=== PATIENT | female | born 1960 | race Caucasian/White ===

== ENCOUNTER 2022-01-04 13:04 | Outpatient (CLI) | payer OTHER, SELFPAY ==
--- NOTE | 2022-01-04 13:20 | CRLHL7_ITS ---
For Patients: As a result of the Century Cures Act, medical imaging exams and procedure reports are released immediately into your electronic medical record. You may view this report before your referring provider. If you have questions, please contact your health care provider. BILATERAL SCREENING MAMMOGRAM WITH COMPUTER-AIDED DETECTION AND TOMOSYNTHESIS TECHNIQUE: CC and MLO views were obtained. These mammographic images have been obtained using full-field digital technique. These mammographic images were interpreted with the benefit of computer-aided detection. Breast Tomosynthesis was used in this interpretation. COMPARISON FILM: 11/09/20, 12/10/18, 12/18/17. FINDINGS: There are scattered areas of fibroglandular density IMPRESSION: There is no radiographic evidence for malignancy. ASSESSMENT: BI-RADS Category 1: Negative RECOMMENDATION: Routine screening mammogram in 1 year. A lay language report of this examination will be provided to the patient. Addison Weinberg M.D. Diagnostic Radiologist [email or web address] Transcribed: 4:10 pm DW/Dictated by: Addison Weinberg MD @ 01/07/2022 8:23:00 AM (Electronically Signed)
== END 2022-01-04 13:05 | disposition home or self-care (01) ==
LOC: MAMMO 13:05
PROVIDERS: PCP Family Medicine; Visit Provider Family Medicine
DX: Z12.31 Encounter for screening mammogram for malignant neoplasm of breast (principal)
CPT/HCPCS: 77063; 77067

== ENCOUNTER 2022-01-17 11:30 | Outpatient (RCR) | payer OTHER, SELFPAY | END 2022-12-18 11:24 | disposition home or self-care (01) | PROVIDERS: PCP Family Medicine; Visit Provider Family Medicine | DX: M25.571 Pain in right ankle and joints of right foot (principal); Z51.89 Encounter for other specified aftercare | CPT/HCPCS: 97110; 97161 ==

== ENCOUNTER 2022-03-05 10:27 | Outpatient (CLI) | payer OTHER, SELFPAY ==
[2022-03-05 13:16] LABS: TSH With Reflex to FT4* 0.425 uIU/mL (0.270-4.200)
== END 2022-03-05 10:28 | disposition home or self-care (01) ==
LOC: NFLDREF 10:33
PROVIDERS: PCP Family Medicine; Visit Provider Family Medicine
DX: E03.9 Hypothyroidism, unspecified (principal)
CPT/HCPCS: 84443

== ENCOUNTER 2022-11-27 14:44 | Outpatient (CLI) | payer OTHER, SELFPAY ==
--- NOTE | 2022-11-27 15:00 | CRLHL7_ITS ---
For Patients: As a result of the Century Cures Act, medical imaging exams and procedure reports are released immediately into your electronic medical record. You may view this report before your referring provider. If you have questions, please contact your health care provider. DXA BONE MINERAL DENSITY STUDY Reason for exam: Osteopenia. Current height (in): 68.5. Weight (lb): 167. Menopause age: 52. Ethnicity: White. 1. Have you had a previous hip or vertebral fracture? No. 2. Have you had any fractures during your adult life which did not result from significant trauma (e.g., auto accident)? No. 3. Did either of your parents have a hip fracture? No. 4. Do you smoke? No. 5. Have you ever taken Glucocorticoids? No. 6. Do you have rheumatoid arthritis? No. 7. Do you have secondary osteoporosis? No. 8. Do you drink 3 or more alcoholic drinks per day? No. 9. Are you being treated for osteoporosis? No. 10. Have you ever taken any of the following medications: Actonel, Evista, Fosamax, Miacalcin, Reclast, Boniva, Forteo, HRT (i.e., estrogen/hormone therapy), Protelos, Prolia, Vitamin D, Calcium, other ??? please specify. ANSWER: Yes, Evista, vitamin D, Boniva, HRT, and calcium. 11. Do you have any of the following medical conditions: Anorexia or bulimia, asthma or emphysema, end stage renal disease, hyperparathyroidism, any seizure disorders, cancer, inflammatory bowel diseases, hysterectomy, other ??? please specify. ANSWER: Yes, anxiety and hypothyroidism. 12. What was your maximum height (inches)? 68.5. 13. Do you perform weight bearing exercise regularly? No. 14. Do you regularly consume dairy products? Yes. 15. Do you drink caffeinated beverages? Yes. If female: 16. At what age did your period start? 15. 17. Are you premenopausal? No. 18. How many full-term pregnancies have you had? 0. 19. Have you ever missed your period for more than 6 months in a row (not including or menopause)? No. TECHNIQUE: Bone mineral density study was performed using the [employer]. FINDINGS: The results of the study expressed as bone mineral density (BMD) are as follows: Lumbar spine L1 to L4: BMD: 0.834 g/cm2. T-score: -1.9. Z-score: -0.5 Neck Left: BMD: 0.752 g/cm2. T-score: -0.9. Z-score: 0.4 Right: BMD: 0.710 g/cm2. T-score: -1.3. Z-score: 0.0 Total Left: BMD: 0.916 g/cm2. T-score: -0.2. Z-score: 0.7 Right: BMD: 0.778 g/cm2. T-score: -1.3. Z-score: -0.4 IMPRESSION: Osteopenia. *Comparison exams done prior to 11/2019 were performed on different unit, [place]. COMPARISON: Compared with scan of 11/09/2020, the bone mineral density has decreased by 6.1 percent at the spine and increased by 3.3 percent at the hip. Compared with scan of 12/10/2018, the bone mineral density has increased by 3.0 percent at the spine and increased by 3.2 percent at the hip. FRAX 10-year Fracture Risk Major Osteoporotic Fracture: 7.5% Hip Fracture: 0.5% Reported Risk Factors: [place] () Neck BMD=0.710, BMI= 25.0 Addison Weinberg M.D. Diagnostic Radiologist [email or web address] DENISE/marge bird/Dictated by: Addison Weinberg MD @ 11/27/2022 3:34:00 PM (Electronically Signed)
== END 2022-11-27 14:45 | disposition home or self-care (01) ==
LOC: RAD 14:45
PROVIDERS: PCP Family Medicine; Visit Provider Family Medicine
DX: M85.80 Other specified disorders of bone density and structure, unspecified site (principal)
CPT/HCPCS: 77080

== ENCOUNTER 2023-01-22 07:31 | Outpatient (CLI) | payer OTHER, SELFPAY | END 2023-01-22 07:32 | disposition home or self-care (01) | LOC: NFLDREF 01-25 07:57 | PROVIDERS: PCP Family Medicine; Referring Provider Family Medicine; Visit Provider Family Medicine | DX: Z00.00 Encounter for general adult medical examination without abnormal findings (principal); E03.9 Hypothyroidism, unspecified; D64.9 Anemia, unspecified; M85.80 Other specified disorders of bone density and structure, unspecified site; R53.83 Other fatigue; Z13.6 Encounter for screening for cardiovascular disorders | CPT/HCPCS: 80048; 80061; 82306; 82728; 83540; 84443 ==

== ENCOUNTER 2023-01-31 12:53 | Outpatient (CLI) | payer OTHER, SELFPAY ==
--- NOTE | 2023-01-31 13:00 | CRLHL7_ITS ---
For Patients: As a result of the Century Cures Act, medical imaging exams and procedure reports are released immediately into your electronic medical record. You may view this report before your referring provider. If you have questions, please contact your health care provider. BILATERAL SCREENING MAMMOGRAM WITH COMPUTER-AIDED DETECTION AND TOMOSYNTHESIS TECHNIQUE: CC and MLO views were obtained. These mammographic images have been obtained using full-field digital technique. These mammographic images were interpreted with the benefit of computer-aided detection. Breast Tomosynthesis was used in this interpretation. COMPARISON FILM: 01/04/22, 11/09/20, 12/10/18. FINDINGS: There are scattered areas of fibroglandular density IMPRESSION: There is no radiographic evidence for malignancy. ASSESSMENT: BI-RADS Category 1: Negative RECOMMENDATION: Routine screening mammogram in 1 year. A lay language report of this examination will be provided to the patient. Addison Weinberg M.D. Diagnostic Radiologist [email or web address] SHABNAM/Dictated by: Addison Weinberg MD @ 02/04/2023 8:18:00 AM (Electronically Signed)
== END 2023-01-31 12:54 | disposition home or self-care (01) ==
LOC: MAMMO 12:54
PROVIDERS: PCP Family Medicine; Visit Provider Family Medicine
DX: Z12.31 Encounter for screening mammogram for malignant neoplasm of breast (principal)
CPT/HCPCS: 77063; 77067

== ENCOUNTER 2023-02-11 13:28 | Outpatient (CLI) | payer OTHER, SELFPAY ==
--- NOTE | 2023-02-11 13:45 | MR_ITS ---
[address] [address] Phone:?[phone] Fax:?[phone] Referring Physician Information: Gavin Vergara M.D. [id number] [facility] [address] Phone:?[phone] Fax:?[phone] Patient:Mima Mcdaniel D.O.B:?1960 Sex:?Female Phone:? [facility] MRN:?[id number] Exam Date:?02/11/2023 EXAM: MRI EXAMINATION OF THE LEFT KNEE CLINICAL INFORMATION: Left knee pain. Difficulty weightbearing. No history of surgery to this area. TECHNICAL INFORMATION: Coronal PD and STIR. Axial PD and T2 fat saturation. Sagittal PD and PD fat saturation images acquired. No prior studies for comparison. INTERPRETATION: Bones: There is a 3.2 cm geographic bone lesion identified within the proximal tibia extending within 4 mm of the surface of the tibial eminence. This is a lobulated, well-demarcated lesion. Predominant increased T2 signal intensity with irregular central areas of intermediate and low T2 signal intensity. No surrounding bone marrow edema signal. Poorly defined marrow edema signal involves the mid to posterior periphery of the medial tibial plateau. No occult fracture or AVN. No other abnormal bone marrow edema pattern is identified. Ligaments and tendons: Residua of a chronic sprain injury and associated thickening involving the proximal one third of the medial collateral ligament. The iliotibial band, fibular collateral ligament, biceps femoris tendon and popliteus tendon all are intact. The anterior cruciate ligament is intact without acute sprain or tear. The posterior cruciate ligament is intact. Extensor Mechanism: The patellar and quadriceps tendons are intact. The medial and lateral retinacula are intact. Knee Joint: There is a small knee joint effusion. No discrete popliteal cyst. There is no discrete loose body seen within the joint. Medial Compartment: Horizontal undersurface tearing involves the mid to posterior body of the medial meniscus. There is horizontal tearing which continues through the majority of the posterior horn as well. No displaced flap fragment or parameniscal cyst. There is no focal chondral defect. No other significant changes of chondromalacia. Lateral Compartment: Series 7 image 20 demonstrates a focal appearance of fraying or shallow tearing involving the inner portion of the body of the lateral meniscus. No evidence for a flap fragment or parameniscal cyst. There is no focal chondral defect. No other significant changes of chondromalacia. Patellofemoral articulation: There is no focal chondral defect. No other significant chondromalacia. CONCLUSION: 1. Horizontal tearing of the mid to posterior body of the medial meniscus continues throughout the majority of the posterior horn as well. Reactive marrow edema signal involves the periphery of the medial tibial plateau. 2. There is a focal appearance of fraying or shallow tear involving the inner portion of the body of the lateral meniscus. 3. There is a 3.2 cm geographic bone lesion within the proximal tibia. This is an indolent, chondroid appearing lesion, likely represents enchondroma. 4. Residua of a low-grade chronic MCL sprain injury. 5. The articular cartilage of the knee is preserved. KES Electronically signed on 02/11/2023 4:35:00 PM by Maikel Rodríguez M.D.
== END 2023-02-11 13:29 | disposition home or self-care (01) ==
LOC: MRI 13:29
PROVIDERS: PCP Family Medicine; Visit Provider Family Medicine
DX: M25.562 Pain in left knee (principal); S83.222A Peripheral tear of medial meniscus, current injury, left knee, initial encounter; S83.282A Other tear of lateral meniscus, current injury, left knee, initial encounter; S83.412A Sprain of medial collateral ligament of left knee, initial encounter
CPT/HCPCS: 73721

== ENCOUNTER 2023-11-25 17:01 | Outpatient (CLI) | payer OTHER, SELFPAY ==
--- NOTE | 2023-11-25 17:30 | CRLHL7_ITS ---
For Patients: As a result of the Century Cures Act, medical imaging exams and procedure reports are released immediately into your electronic medical record. You may view this report before your referring provider. If you have questions, please contact your health care provider. INDICATION: Localized edema TECHNIQUE: : Ultrasound venous duplex lower extremity bilateral. Compression venous exam was performed using agee-scale, color Doppler, and spectral Doppler imaging. COMPARISON: None FINDINGS: Sonographic imaging demonstrates the common femoral, deep femoral, superficial femoral, popliteal, and posterior tibial veins and the left greater saphenous vein to be fully compressible with normal color Doppler blood flow in both lower extremities. Occlusive superficial thrombus is present within the right greater saphenous vein from the proximal thigh to the calf. IMPRESSION: 1. Both legs are negative for DVT. 2. Acute SVT in the right greater saphenous vein. Dictated by Abbe Anderson MD @ 11/26/2023 1:48:32 PM (Electronically Signed)
== END 2023-11-25 17:02 | disposition home or self-care (01) ==
LOC: US 17:02
PROVIDERS: PCP Family Medicine; Visit Provider Family Medicine
DX: R60.0 Localized edema (principal); I47.19 Other supraventricular tachycardia
CPT/HCPCS: 82728; 83540; 83550; 84443; 93970

== ENCOUNTER 2023-12-08 08:36 | Outpatient (CLI) | payer OTHER, SELFPAY ==
--- NOTE | 2023-12-08 08:45 | CRLHL7_ITS ---
For Patients: As a result of the Cures Act, medical imaging exams and procedure reports are released immediately into your electronic medical record. You may view this report before your referring provider. If you have questions, please contact your health care provider. BILATERAL SCREENING MAMMOGRAM WITH COMPUTER-AIDED DETECTION AND TOMOSYNTHESIS TECHNIQUE: CC and MLO views were obtained. These mammographic images have been obtained using full-field digital technique. These mammographic images were interpreted with the benefit of computer-aided detection. Breast Tomosynthesis was used in this interpretation. COMPARISON FILM: 01/31/23, 01/04/22, 11/09/20. FINDINGS: There are scattered areas of fibroglandular density IMPRESSION: There is no radiographic evidence for malignancy. ASSESSMENT: BI-RADS Category 1: Negative RECOMMENDATION: Routine screening mammogram in 1 year. A lay language report of this examination will be provided to the patient. QIANA GARCIAS M.D. Diagnostic/Nuclear Medicine Radiologist [email or web address] NEREIDA:marge Transcribed: 12:33 p.mEsau bird/Dictated by: Qiana Garcias MD @ 12/11/2023 8:32:00 AM (Electronically Signed)
== END 2023-12-08 08:37 | disposition home or self-care (01) ==
PROVIDERS: PCP Family Medicine; Visit Provider Family Medicine
DX: Z12.31 Encounter for screening mammogram for malignant neoplasm of breast (principal)
CPT/HCPCS: 77063; 77067

== ENCOUNTER 2023-12-29 07:55 | Outpatient (CLI) | payer OTHER, SELFPAY | END 2023-12-29 07:56 | disposition home or self-care (01) | LOC: NFLDREF 12-30 10:47 | PROVIDERS: PCP Family Medicine; Referring Provider Family Medicine; Visit Provider Family Medicine | DX: Z13.1 Encounter for screening for diabetes mellitus (principal); Z13.6 Encounter for screening for cardiovascular disorders | CPT/HCPCS: 80053; 80061 ==

== ENCOUNTER 2024-01-15 08:30 | Outpatient (CLI) | payer OTHER, SELFPAY ==
--- NOTE | 2024-01-15 09:00 | CRLHL7_ITS ---
For Patients: As a result of the Century Cures Act, medical imaging exams and procedure reports are released immediately into your electronic medical record. You may view this report before your referring provider. If you have questions, please contact your health care provider. INDICATION: Left upper quadrant abdominal pain. COMPARISON: None. TECHNIQUE: CT abdomen and pelvis without intravenous contrast performed during Valsalva maneuver; coronal and sagittal reformats. FINDINGS: No intra pulmonary nodular densities through the lung bases. No evidence of pleural effusion. Normal size cardiac silhouette without any pericardial effusion. No focal hepatic or splenic pathology. No pancreatic pathology. Gallbladder is unremarkable. No adrenal pathology. 2 mm nonobstructing calculus lower pole calyx right kidney. 2 mm nonobstructing calculus upper pole calyx right kidney. Several 2 millimeter calculi lower pole calyx left kidney. No ureteral calculi on either side. No obstructive uropathy or perinephric pathology. No retroperitoneal lymphadenopathy. No evidence of abdominal or pelvic ascites. Diverticulosis sigmoid colon without any CT evidence of diverticulitis or abscess. CT of the pelvis is unremarkable. Impression: 1. nonobstructing intrarenal calculi both kidneys. 2. Negative unenhanced CT abdomen and pelvis otherwise. Please note that all CT scans at this facility use dose modulation, iterative reconstruction, and/or weight-based dosing when appropriate to reduce radiation dose to as low as reasonably achievable. Dictated by Nael Farmer MD @ 01/16/2024 10:47:19 AM (Electronically Signed)
== END 2024-01-15 08:31 | disposition home or self-care (01) ==
LOC: CT 08:31
PROVIDERS: PCP Family Medicine; Visit Provider Family Medicine
DX: R10.12 Left upper quadrant pain (principal); N20.0 Calculus of kidney
CPT/HCPCS: 74176

== ENCOUNTER 2024-08-31 10:52 | Outpatient (CLI) | payer OTHER, SELFPAY | END 2024-08-31 10:53 | disposition home or self-care (01) | PROVIDERS: PCP Family Medicine; Visit Provider Family Medicine | DX: E03.9 Hypothyroidism, unspecified (principal); G62.9 Polyneuropathy, unspecified; Z13.21 Encounter for screening for nutritional disorder | CPT/HCPCS: 80053; 82607; 82746; 84207; 84443 ==

== ENCOUNTER 2024-10-20 12:39 | Outpatient (CLI) | payer OTHER, SELFPAY ==
--- NOTE | 2024-10-20 13:00 | CRLHL7_ITS ---
For Patients: As a result of the Century Cures Act, medical imaging exams and procedure reports are released immediately into your electronic medical record. You may view this report before your referring provider. If you have questions, please contact your health care provider. XR DXA Bone Mineral Density (BMD) Reason for exam: Osteopenia. Current height (in): 68.5. Weight (lb): 185. Menopause age: 52. Ethnicity: White. 1. Have you had a previous hip or vertebral fracture? No. 2. Have you had any fractures during your adult life which did not result from significant trauma (e.g., auto accident)? No. 3. Did either of your parents have a hip fracture? No. 4. Do you smoke? No. 5. Have you ever taken Glucocorticoids? No. 6. Do you have rheumatoid arthritis? No. 7. Do you have secondary osteoporosis? No. 8. Do you drink 3 or more alcoholic drinks per day? No. 9. Are you being treated for osteoporosis? No. 10. Have you ever taken any of the following medications: Actonel, Evista, Fosamax, Miacalcin, Reclast, Boniva, Forteo, HRT (i.e. estrogen/hormone therapy), Protelos, Prolia, Vitamin D, Calcium, other ??? please specify. ANSWER: Yes, Evista, vitamin D, Boniva, HRT (estrogen/hormone therapy), and calcium . 11. Do you have any of the following medical conditions: Anorexia or bulimia, asthma or emphysema, end stage renal disease, hyperparathyroidism, any seizure disorders, cancer, inflammatory bowel diseases, hysterectomy, other ??? please specify. ANSWER: Yes, Anxiety, hypothyroidism. 12. What was your maximum height (inches)? 68.5. 13. Do you perform weight bearing exercise regularly? No. 14. Do you regularly consume dairy products? Yes. 15. Do you drink caffeinated beverages? Yes. 16. At what age did your period start? 15. 17. Are you premenopausal? No. 18. How many full term pregnancies have you had? Zero. 19. Have you ever missed your period for more than 6 months in a row (not including or menopause)? No. TECHNIQUE: Bone mineral density study was performed using the [employer]. FINDINGS: The results of the study expressed as bone mineral density (BMD) are as follows: Lumbar spine L1 to L4: BMD: 0.832 g/cm2. T-score: -2.0. Z-score: -0.4. Neck Left: BMD: 0.755 g/cm2. T-score: -0.8. Z-score: 0.5. Right: BMD: 0.754 g/cm2. T-score: -0.9. Z-score: 0.5. Total Left: BMD: 0.927 g/cm2. T-score: -0.1. Z-score: 0.9. Right: BMD: 0.810 g/cm2. T-score: -1.1. Z-score: -0.0. IMPRESSION: Osteopenia. *Comparison exams done prior to 11/2019 were performed on different unit, [facility]. COMPARISON: Compared with scan of 11/27/2022, the bone mineral density has decreased by 0.2 percent at the spine and increased 2.6 percent at the hip. Compared with scan of 11/09/2020, the bone mineral density has decreased by 6.1 percent at the spine and increased by 3.3 percent at the hip. FRAX 10-year Fracture Risk Major Osteoporotic Fracture: 7.3 percent Hip Fracture: 0.4 percent Reported Risk Factors: [place] () Neck BMD=0.754, BMI=27.7 Addison Weinberg M.D. Diagnostic Radiologist [email or web address] bM/Dictated by: Addison Weinberg MD @ 10/20/2024 3:49:00 PM (Electronically Signed)
== END 2024-10-20 12:40 | disposition home or self-care (01) ==
LOC: RAD 12:40
PROVIDERS: PCP Family Medicine; Visit Provider Family Medicine
DX: M85.80 Other specified disorders of bone density and structure, unspecified site (principal); M85.89 Other specified disorders of bone density and structure, multiple sites; Z78.0 Asymptomatic menopausal state
CPT/HCPCS: 77080

== ENCOUNTER 2024-11-01 08:33 | Outpatient (CLI) | payer OTHER, SELFPAY | END 2024-11-01 08:34 | disposition home or self-care (01) | LOC: NFLDREF 19:21 | PROVIDERS: PCP Family Medicine; Referring Provider Family Medicine; Visit Provider Family Medicine | DX: E03.9 Hypothyroidism, unspecified (principal) | CPT/HCPCS: 80061 ==

== ENCOUNTER 2024-11-04 11:26 | Outpatient (CLI) | payer OTHER, SELFPAY | END 2024-11-04 11:27 | disposition home or self-care (01) | LOC: LKVREF 11:26 | PROVIDERS: PCP Family Medicine; Visit Provider Family Medicine | DX: N87.0 Mild cervical dysplasia (principal); D64.9 Anemia, unspecified; G62.9 Polyneuropathy, unspecified | CPT/HCPCS: 88141; 88142 ==

== ENCOUNTER 2024-11-24 09:04 | Outpatient (CLI) | payer OTHER, SELFPAY ==
--- NOTE | 2024-11-24 09:15 | MM_ITS ---
Patient: GO NEELY Facility:?[facility] Patient ID:?[id number] Site Patient ID:?[id number]. Site :?[id number] Study:?XRay-Breast 3D Vahid SCREENING-11/24/2024 9:37:27 AM Ordering Physician:Wendi Alonso Final Report: INDICATION: BILATERAL SCREENING MAMMOGRAM, ASYMPTOMATIC 63 Y/O FEMALE COMPARISON: 12/08/2023, 01/31/2023, 01/04/2022 TECHNIQUE: Digital mammogram in CC and MLO projections including computer-aided detection (CAD) and tomosynthesis. BREAST COMPOSITION: There are scattered areas of fibroglandular density. FINDINGS: No suspicious findings. ASSESSMENT: BI-RADS 1 Negative RECOMMENDATION: Annual screening mammogram. A lay language report of this examination will be provided to the patient. Dictated by: Addison Weinberg MD @ 11/25/2024 10:56:27 Signed by:?Addison Weinberg MD @11/25/2024 10:56:27 AM (Electronic Signature)
--- OUTSIDE RECORDS SUMMARY | 2024-11-25 00:16 | XMS_ITS | CCD ---
Author Name Interface, I1Rgyxxgn lity Address [address] [place], [place] [id number] [facility] Address [facility] [place] [id number] Care Team Providers Care Yeast Washer Name Role Phone Davey PIÑA, Maurisio Unavailable Unavailable Care Plan Reason for Visit Encounters Diagnostic Results Social History Visits
--- OUTSIDE RECORDS SUMMARY | 2024-11-25 00:16 | XMS_ITS | Clinical Summary ---
Author Organization [email or web address] [facility] Address [address] [place] [address] Care Team Providers Care Waste Machine Tender Name Role Phone Meli Echavarria MD Primary Care Provider + Allergies Active Allergy Reactions Criticality Noted Date Comments Sulfa (Sulfonamide Antibiotics) Nausea Only 07/2015 Medications citalopram (CELEXA) 20 mg tablet 20 mg. 6 Active ESTRING 2 mg vaginal ring 2 mg. 6 Active fluticasone (50 mcg per actuation) nasal solution (FLONASE) 50 mcg. 6 Active ibandronate (BONIVA) 150 mg tablet 15 mg. 6 Active levothyroxine (SYNTHROID) 50 mcg tablet 50 mcg. 6 Active polyethylene glycol-electrol yte (GOLYTELY) 236-22.74-6.74 -5.86 gram suspensionIndic ations:Anemia, unspecified type Drink 3 quarts the day before colonosocopy and 1 quart 6 hours before colonoscopy appointment 4000 mL 0 Active Active Problems Problem Noted Date Diagnosed Date Routine adult health maintenance 03/15/2013 Overview (03/15/2013): Colonoscopy 03/2013 normal repeat in 10 years Social History Tobacco Use Types Packs/Day Years Used Date Smoking Tobacco: Never Assessed Comments No Sex and Gender Information Value Date Recorded Sex Assigned at Not on file Legal Sex Female 8:36 AM CDT Gender Identity Not on file Sexual Orientation Not on file Obstetrics History Last Filed Vital Signs Vital Sign Reading Time Taken Comments Blood Pressure 107/68 10/02/2015 7:54 AM CDT Pulse 70 10/02/2015 7:54 AM CDT Temperature 36.8 C (98.2 F) 10/02/2015 7:54 AM CDT Respiratory Rate - - Oxygen Saturation 100% 10/02/2015 7:54 AM CDT Inhaled Oxygen Concentration - - Weight 69.9 kg (154 lb) 10/02/2015 7:54 AM CDT Height 173 cm (5' 8.11) 10/02/2015 7:54 AM CDT Body Mass Index 23.34 10/02/2015 7:54 AM CDT Plan of Treatment Health Maintenance Due Date Last Done Comments Tdap 1973 Depression screening for age 12+ 1974 HIV for age 15-65 1977 Hepatitis C screening for age 18-79 1980 Tetanus booster 1982 Lipids for age 45-75 12/11/2007 Mammogram for age 45-75 12/11/2007 Pneumococcal series for age 50+ (1 of 1 - PCV) 2012 Zoster (shingles) series for age 50+ (1 of 2) 2012 BMI (ht and wt on same day) for age 18+ 10/01/2016 10/02/2015 COVID-19 vaccine series ( - 2023- season) 2024 Influenza Vaccine (Season Ended) 2025 Pap test for age 21-65 01/30/2026 , 01/30/2023, 12/04/2020, Additional history exists Colonoscopy through age 75 01/23/203001/23, 03/15/2013, 03/15/2013, Additional history exists RSV vaccine for adults or (1 - 1-dose 75+ series) 2037 Hepatitis B series for 19+ Aged Out N o longer eligible based on patient's age to complete this topic Procedures Procedure Name Priority Date/Time Associated Diagnosis Comments HPV HIGH RISK Routine 01/30/2023 12:00 PM CDT SCAN-COLONOSCOPY 03/15/2013 12:0 0 AM CDT from Last 3 Months or Most Recently Relevant to Health Maintenance Results * HPV HIGH RISK (01/30/2023 12:00 PM CDT) TYPE 16 Negative Negative 02/05/2023 4:09 PM CDT [facility] TYPE 18 Negative Negative 02/05/2023 4:09 PM CDT [facility] OTHER HIGH RISK TYPES Negative Negative 02/05/2023 4:09 PM CDT [facility] Other (Cervical/Vagina l) 01/30/2023 12:00 PM CDT 02/04/2023 10:33 AM CDT Narrative [facility] - 02/05/2023 4:09 PM CDT HPV types 16, 18, 31, 33, 35, 39, 45, 51, 52, 56, 58, 59, 66 and 68 DNA were undetectable or below the pre-set threshold. Methodology: [employer] 4800 HPV Test Gavin Vergara MD MICROBIOLOGY Final Result [facility] [address] [place] [address], [place] * SCAN-COLONOSCOPY (03/15/2013 12:00 AM CDT) Narrative 03/15/2013 12:00 AM CDT Procedure Note Scanner - 03/15/2013 12:00 AM CDT us Scanner OTHER Final Result from Last 3 Months or Most Recently Relevant to Health Maintenance Insurance [place]ACIS[place] KARIMI [id number] Care Teams Waste Machine Tender Relationship Specialty Start Date End Date Meli Echavarria MD [address] [place] [address] PCP - General Family Practice 08/16/15
== END 2024-11-24 09:05 | disposition home or self-care (01) ==
LOC: MAMMO 09:04
PROVIDERS: PCP Family Medicine; Visit Provider Family Medicine
DX: Z12.31 Encounter for screening mammogram for malignant neoplasm of breast (principal)
CPT/HCPCS: 77063; 77067

== ENCOUNTER 2025-02-03 09:58 | Outpatient (CLI) | payer OTHER, SELFPAY | END 2025-02-03 09:59 | disposition home or self-care (01) | LOC: NFLDREF 02-09 08:17 | PROVIDERS: PCP Family Medicine; Referring Provider Family Medicine; Visit Provider Family Medicine | DX: D64.9 Anemia, unspecified (principal); G62.9 Polyneuropathy, unspecified | CPT/HCPCS: 82607; 82728; 83540; 83550; 84207 ==

== ENCOUNTER 2025-04-08 09:15 | Outpatient (RCR) | payer OTHER, SELFPAY | END 2025-05-03 12:43 | disposition home or self-care (01) | PROVIDERS: PCP Family Medicine; Visit Provider Family Medicine | DX: M54.2 Cervicalgia (principal); Z51.89 Encounter for other specified aftercare | CPT/HCPCS: 97110; 97140; 97161 ==